=== PATIENT | male | born 2000 | race African-American/Black ===

== ENCOUNTER 2020-03-18 14:58 | Emergency (ER) | payer SELFPAY ==
[~2020-03-18] VITALS: Ht 177.8 cm; Wt 78.0 kg
[2020-03-18 15:15] VITALS: BP 127/86
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
[2020-03-18] MEDS ORDERED: Methocarbamol 750mg tab ORAL ONE (15:45)
[2020-03-18] MEDS ORDERED: Tetanus/Diptheria/Pertussis IM ONE (15:45)
--- NOTE | 2020-03-18 15:48 | NUR ---
ED Nurse Note: Pt was taken to CT via wc, accompanied by a tech.
--- NOTE | 2020-03-18 16:07 | NUR ---
ED Nurse Note: Pt returned from Ct.
[2020-03-18] MEDS ORDERED: NAPROXEN500 M1 ORAL (16:32)
[2020-03-18] MEDS ORDERED: ROBAXIN-750750 MG PO (16:32)
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
--- NOTE | 2020-03-18 16:42 | Diagnostic Imaging Report ---
EXAM: CT Head Without Intravenous Contrast CLINICAL HISTORY: PAIN TECHNIQUE: Axial computed tomography images of the head/brain without intravenous contrast. CTDI is 53.4 mGy and DLP is 1045.5 mGy-cm. One or more of the following dose reduction techniques were used: automated exposure control, adjustment of the mA and/or kV according to patient size, use of iterative reconstruction technique. COMPARISON: None FINDINGS: Brain: No acute infarct or hemorrhage. No extra-axial fluid collection. No mass effect or midline shift. Ventricles and sulci: Normal. No ventriculomegaly or intraventricular hemorrhage. Bones: Normal. No bony lesion or acute fracture. Subcutaneous tissues: Normal. Sinuses: Mild mucosal thickening in the right maxillary sinus. Mastoid air cells: Normal. Orbits: Grossly unremarkable. IMPRESSION: No acute intracranial abnormality.
--- NOTE | 2020-03-18 16:58 | Diagnostic Imaging Report ---
EXAM: CT Cervical Spine Without Intravenous Contrast CLINICAL HISTORY: PAIN TECHNIQUE: Axial computed tomography images of the cervical spine without intravenous contrast. CTDI is 20.1 mGy and DLP is 510.9 mGy-cm. One or more of the following dose reduction techniques were used: automated exposure control, adjustment of the mA and/or kV according to patient size, use of iterative reconstruction technique. COMPARISON: None FINDINGS: Bones: Normal alignment. No acute fracture or bony lesion. Disc spaces: No subluxation. No spinal canal stenosis or neuroforaminal stenosis. Soft tissues: Normal. Other: Small polyp versus mucous retention cyst in the right maxillary sinus. Scattered lymph nodes are likely reactive. IMPRESSION: No acute traumatic abnormality.
--- NOTE | 2020-03-18 17:08 | Diagnostic Imaging Report ---
EXAM: CT Lumbar Spine Without Intravenous Contrast CLINICAL HISTORY: PAIN TECHNIQUE: Axial computed tomography images of the lumbar spine without intravenous contrast. CTDI is 6 mGy and DLP is 225.2 mGy-cm. One or more of the following dose reduction techniques were used: automated exposure control, adjustment of the mA and/or kV according to patient size, use of iterative reconstruction technique. COMPARISON: None FINDINGS: Bones: Normal alignment. No acute fracture or bony lesion. Disc spaces: No subluxation. No spinal canal stenosis. Mild to moderate neural foraminal stenoses at L4-5 and L5-S1. Soft tissues: Normal. IMPRESSION: No acute traumatic abnormality.
--- NOTE | 2020-03-18 17:09 | Diagnostic Imaging Report ---
EXAM: XR Right Knee, 1 or 2 Views CLINICAL HISTORY: PAIN TECHNIQUE: Frontal and/or lateral views of the right knee. COMPARISON: None FINDINGS: Bones/joints: No displaced fracture or dislocation identified. Joint space is maintained. No bony lesion. No knee joint effusion Soft tissues: Normal. IMPRESSION: No displaced fracture or dislocation identified.
[2020-03-18 17:24] VITALS: BP 127/86
--- NOTE | 2020-03-18 17:24 | NUR ---
ED Nurse Note: Pt cleared by ERMD for discharge. DC instructions/prescription was given and explained to pt and verbalized understanding of teachings. All medical deviecs such as ID band removed. Pt is AAO x4, ambulatory and left with all personal belongings.
== END 2020-03-18 17:24 | disposition home or self-care (01) ==
LOC: EMR 16:20
DX: M54.2 Cervicalgia (principal); M54.9 Dorsalgia, unspecified; M25.561 Pain in right knee; M62.838 Other muscle spasm; S60.519A Abrasion of unspecified hand, initial encounter; V43.52XA Car driver injured in collision with other type car in traffic accident, initial encounter; Y92.410 Unspecified street and highway as the place of occurrence of the external cause; Z23 Encounter for immunization
CPT/HCPCS: 70450; 72125; 72131; 90471; 90715; 99284